=== PATIENT | female | born 1940 | race Caucasian/White ===

== ENCOUNTER 2019-08-09 19:05 | Emergency (ER) | payer MEDICARE, OTHER ==
--- NOTE | 2019-08-09 19:59 | EDM.PDOC ---
ED HPI GENERAL MEDICAL PROBLEM - General Chief Complaint: Chest Pain Stated Complaint: CHEST PAIN VOMITING POST OP Time Seen by Provider: 08/09/19 19:17 Source of Information: Reports: Patient, Family (2 daughters) History Limitations: Reports: Physical Impairment (Hard of hearing - daughters answered most questions) - History of Present Illness INITIAL COMMENTS - FREE TEXT/NARRATIVE: Ms. Sanders is a pleasant 78-year-old woman with a past medical history significant for colon cancer, status post a hemicolectomy with diverting loop colostomy on 06/29/2014, subsequently reversed, and chemotherapy via Port-A-Cath which is also been reversed, and an ascending aortic aneurysm, for which she underwent repair at [facility] on 07/27/2019. Her postoperative course was complicated by paroxysmal atrial fibrillation, currently being treated with amiodarone, and by bleeding ulcers. She required 1 unit PRBC transfusion on 08/03/2019. She was discharged home yesterday, Friday, with a prescription for Hurricane 5/325 that she has been taking 1 tablet every 2-4 hours, as needed for pain. She is not prescribed an antiemetic. The patient is now brought to the ED by 2 of her daughters who tell me that she developed nausea and vomiting yesterday morning, and while she has been experiencing intermittent chest pain and epigastric pain ever since surgery, ER worse since she began vomiting. She also complains of lower back pain, although the daughters tell me that that is chronic. She has been dizzy when upright, for the past day or so. No recent fever or chills, cough, dyspnea, or constipation. She has chronically loose stools following her hemicolectomy. No urinary symptoms. Here in the ED, the patient's BP is found to be mildly elevated, but she is otherwise hemodynamically stable, afebrile, saturating 92% on room air. The patient's PCP is Krystyna Doshi NP. Her Thoracic Surgeon is Dr. Mauricio Cunha. They do not recall the name of her [employer]. Her Oncologist is Dr. Torsten Pierson. She received an influenza vaccine this season. Upper Abdomen Pain Score (Numeric/FACES): 8 - Related Data Allergies Allergy/AdvReac Type Severity Reaction Status Date / Time No Known Allergies Allergy Verified 08/09/19 19:17 Home Meds: Home Meds Acetaminophen 500 mg PO Q4H PRN 08/09/19 [History] Amiodarone HCl 400 mg PO BID 08/09/19 [History] Aspirin 325 mg PO DAILY 08/09/19 [History] Calcium Carbonate/Vitamin D3 [Calcium 500-Vit D3 200 Caplet] 1 tab PO DAILY 07/29 [History] Denosumab [Prolia] 1 injection SUBCUT ASDIRECTED 08/09/19 [History] Ferrous Sulfate 325 mg PO DAILY 08/09/19 [History] Hydrocodone/Acetaminophen [Hydrocodon-Acetaminophen 5-325] 1 tab PO Q4H PRN 07/29 [History] Metoprolol Tartrate 25 mg PO BID 08/09/19 [History] Multivitamin with Minerals [Multiple Vitamin] 1 tab PO DAILY 08/09/19 [History] Ondansetron [Zofran ODT] 1 tab PO Q8H PRN #10 tab.dis 08/09/19 [Rx] Pantoprazole [ProTONIX] 40 mg PO DAILY 08/09/19 [History] Sennosides/Docusate Sodium [Senna-Docusate Sodium Tablet] 1 tab PO DAILY [History] Sucralfate 1 gm PO QID 08/09/19 [History] atorvaSTATin [Lipitor] 20 mg PO BEDTIME 08/09/19 [History] Past Medical History Cardiovascular History: Reports: Afib (paroxysmal, postoperative), Aneurysm ( ascending aortic, s/p repair), Blood Clots/VTE/DVT (no PE), High Cholesterol Gastrointestinal History: Reports: GERD, PUD (postoperative) Musculoskeletal History: Reports: Arthritis, Osteoporosis Neurological History: Reports: Neuropathy, Peripheral (2ndary to CTx) Oncologic (Cancer) History: Reports: Colon (s/p hemicolectomy, CTx) - Past Surgical History Cardiovascular Surgical History: Reports: Aneurysm (ascending aortic, 07/27/2019) , Other (See Below) (Port-A-Cath, subsequently reversed) GI Surgical History: Reports: Colon (hemicolectomy with diverting loop colostomy 06/29/2014, subsequently reversed) Female Surgical History: Reports: Tubal Ligation Social & Family History - Tobacco Use Smoking Status *Q: Former Smoker Years of Tobacco use: 61 Packs/Tins Daily: 1 Month/Year Tobacco Last Used: Quit Jul 2019 - Caffeine Use Caffeine Use: Reports: None - Alcohol Use Alcohol Use History: Yes Alcohol Use Frequency: Socially - Recreational Drug Use Recreational Drug Use: No - Living Situation & Occupation Living situation: Reports: , Alone (currently staying with a daughter) Occupation: Retired ED ROS GENERAL - Review of Systems Review Of Systems: Comprehensive ROS is negative, except as noted in HPI. ED EXAM, GENERAL - Physical Exam Exam: See Below Exam Limited By: No Limitations General Appearance: Alert, WD/WN, No Apparent Distress Eye Exam: Bilateral Eye: EOMI, Normal Inspection Ears: Normal External Exam, Hearing Loss Nose: Normal Inspection Throat/Mouth: Normal Inspection, Normal Lips, Normal Voice, No Airway Compromise Head: Atraumatic, Normocephalic Neck: Normal Inspection, Full Range of Motion Respiratory/Chest: No Respiratory Distress, Lungs Clear, Normal Breath Sounds, No Accessory Muscle Use, Decreased Breath Sounds (throughout), Crackles ( bibasilar), Other (Well-healing midline sternotomy wound with minimal associated ecchymoses). No: Rhonchi, Wheezing, Stridor, Prolonged Expiration Cardiovascular: Normal Peripheral Pulses, Regular Rate, Rhythm, No Edema, No Gallop, No JVD, No Murmur, No Rub Peripheral Pulses: 4+: Radial (L), Radial (R) GI/Abdominal: Normal Bowel Sounds, Soft, No Organomegaly, No Distention, No Abnormal Bruit, No Mass, Tender (appropriate ines-incisional epigastric, otherwise nontender), Other (2 healing surgical wounds in epigastrium with associated ecchymosis) (Female) Exam: Deferred Rectal (Female) Exam: Deferred Back Exam: Normal Inspection, Full Range of Motion. No: CVA Tenderness (L), CVA Tenderness (R) Extremities: Normal Inspection, Normal Range of Motion, No Pedal Edema, Normal Capillary Refill Neurological: Alert, Oriented, Normal Cognition, No Motor/Sensory Deficits Psychiatric: Flat Affect Skin Exam: Warm, Dry, Intact, Normal Color, No Rash EKG INTERPRETATION EKG Date: 08/09/19 Time: 19:15 Rhythm: NSR Rate (Beats/Min): 68 Varney: Normal P-Wave: Present (1st degree AVB) QRS: Normal ST-T: Normal QT: Normal Comparison: No Change (04/11/2015) Course - Vital Signs Last Recorded V/S: Last Vital Signs Temp 36.4 C 08/09/19 19:12 Pulse 81 08/09/19 19:12 Resp 18 08/09/19 19:12 BP 150/71 H 08/09/19 19:12 Pulse Ox 92 L 08/09/19 19:12 Orthostatic Blood Pressure [ 117/62 Standing] Orthostatic Blood Pressure [ 121/68 Supine] - Orders/Labs/Meds Orders: Active Orders 24 hr Category Date Time Status EKG Documentation Completion [RC] STAT Care 08/09/19 19:51 Active Orthostatic Vital Signs [RC] STAT Care 08/09/19 19:50 Active Labs: Laboratory Tests 08/09/19 08/09/19 Range/Units 20:02 20:02 WBC 10.90 H (3.98-10.04) K/mm3 RBC 2.82 L (3.98-5.22) M/mm3 Hgb 8.8 L D (11.2-15.7) gm/dl Hct 29.1 L (34.1-44.9) % MCV 103.2 H D (79.4-94.8) fl MCH 31.2 (25.6-32.2) pg MCHC 30.2 L (32.2-35.5) g/dl RDW Std Deviation 61.5 H (36.4-46.3) fL Plt Count 467 H D (182-369) K/mm3 MPV 10.0 (9.4-12.3) fl Neutrophils % (Manual) 88 H (40-60) % Band Neutrophils % 1 (0-10) % Lymphocytes % (Manual) 5 L (20-40) % Atypical Lymphs % 0 % Monocytes % (Manual) 6 (2-10) % Eosinophils % (Manual) 0 L (0.7-5.8) % Basophils % (Manual) 0 L (0.1-1.2) Platelet Estimate Increased Plt Morphology Comment See note Polychromasia 1+ slight Hypochromasia 1+ slight Anisocytosis 1+ slight Macrocytosis 1+ slight Tear Drop Cells Few Ovalocytes 1+ slight Sodium 144 (136-145) mEq/L Potassium 3.8 (3.5-5.1) mEq/L Chloride 108 H (98-107) mEq/L Carbon Dioxide 28 (21-32) mEq/L Anion Gap 11.8 (5-15) BUN 17 (7-18) mg/dL Creatinine 0.8 (0.55-1.02) mg/dL Est Cr Clr Drug Dosing 42.97 mL/min Estimated GFR (MDRD) > 60 (>60) mL/min BUN/Creatinine Ratio 21.3 H (14-18) Glucose 154 H (83-115) mg/dL Calcium 8.6 (8.5-10.1) mg/dL Magnesium 1.8 (1.8-2.4) mg/dl Total Bilirubin 0.4 (0.2-1.0) mg/dL AST 12 L (15-37) U/L ALT 20 (14-59) U/L Alkaline Phosphatase 64 (46-116) U/L Total Protein 6.1 L (6.4-8.2) g/dl Albumin 2.8 L (3.4-5.0) g/dl Globulin 3.3 gm/dL Albumin/Globulin Ratio 0.9 L (1-2) - Re-Assessments/Exams Free Text/Narrative Re-Assessment/Exam: 08/09/19 19:52 Patient's sternal and epigastric pain is most likely related to her recent thoracic surgery, made worse by recent vomiting. I suspect that the patient received IV analgesics while in the hospital, and has now been switched to oral Hurricane, with a high propensity for nausea and vomiting. She has not prescribed an antiemetic, most likely because of concerns of QT prolongation, although here in the ED, her triage ECG shows a QTc of only 423 ms, so I believe there is some room to treat. On physical examination, the patient does have bibasilar crackles, and I would expect that she would have at least small pleural effusions following this surgery. I have ordered a chest x-ray to evaluate. For today's purposes, I have ordered some blood work, primarily to make sure that she is not so anemic that she requires a transfusion, as well as to track electrolytes and renal function, to make sure no replacements are necessary. I have also ordered orthostatics, given her report of lightheadedness when upright. 08/09/19 19:54 The patient is not orthostatic. 08/09/19 20:29 Two-view chest radiograph reviewed. The cardiac silhouette appears to be within normal limits, however, there is a moderate-sized left-sided pleural effusion which obscures the left cardiac border. Fluid is seen within the left oblique fissure. There is likely a small right-sided pleural effusion, as well. The aortic arch is dilated, and the trachea is deviated to the right. Mild pulmonary vascular congestion. No focal infiltrate seen, but the lower left lung field is obscured by the pleural effusion. No pneumothorax. Sternotomy wires noted. Formal read per the Radiologist pending. 08/09/19 20:46 2-view chest radiograph is read by Dr. Llamas as: Small right-sided pleural effusion with slightly larger left-sided pleural effusion. Some of the left-sided pleural effusion may be loculated. Heart is enlarged which is more prominent than seen on prior exam. Pulmonary vessels are slightly congested. Previous sternotomy is noted. Bony structures shows slight degenerative change within the spine. Previous sternotomy is noted. Impression: 1. Small pleural effusions as noted above. 2. Cardiomegaly and mild pulmonary vascular congestion. Findings are suspicious for mild CHF. 08/09/19 21:04 The patient's CBC is remarkable for a WBC count elevated at 10.90, but with only 1% bandemia. Her H/H is depressed at 8.8/29.1. Her platelets are elevated at 467,000. Her CMP is remarkable for a chloride slightly elevated at 108, and a blood glucose elevated 154, with the remainder of her CMP being unremarkable. Her magnesium level is within normal limits at 1.8. I pushed the chest x-ray images to [facility] at 21:03. 08/09/19 21:14 Case discussed with Eduardo at [facility] at 21:06. Case then discussed with Dr. Reid, Thoracic Surgeon on-call, at 21:11. He felt that the patient symptoms were in line with what would be expected following this surgery. The pleural effusion can be tapped as an outpatient when needed. He is okay with my prescribing Zofran. I will discharge the patient home. 08/09/19 21:33 Test results discussed with the patient and HER-2 daughters. The patient will be given a single dose of oral Zofran here, then be discharged home. I will submit a prescription for Zofran. The patient will follow up with Dr. Cunha this coming 08/13/2019. Departure - Departure Time of Disposition: 21:34 Disposition: Home, Self-Care 01 Condition: Good Clinical Impression: Pleural effusion on left - Discharge Information *PRESCRIPTION DRUG MONITORING PROGRAM REVIEWED*: Not Applicable *COPY OF PRESCRIPTION DRUG MONITORING REPORT IN PATIENT SCOTTY: Not Applicable Referrals: Estella Doshi NP [Primary Care Provider] - Mauricio Cunha MD [Ordering Only Provider] - Torsten Pierson MD [Ordering Only Provider] - Forms: ED Department Discharge Additional Instructions: You were seen in the emergency room for intermittent chest pain and upper abdominal pain, along with nausea and vomiting, following sending aortic aneurysm repair on 07/27/2019. Work-up in the ER included blood work, positional blood pressure checks, a chest x-ray, and an ECG. Your work-up found that you have a moderate sized left pleural effusion. Your blood work showed your hemoglobin to be 8.8. The remainder of your work-up was unremarkable. Your case was discussed with the Thoracic Surgeon Dr. Reid, who explained that the symptoms that you have been experiencing are to be expected following your type of surgery. You have been started on the anti-nausea medicine Zofran, and a prescription for Zofran has been sent to the [facility], located at [address] [place] [address]. You may dissolve 1 tablet of Zofran on your tongue up to every 8 hours, as needed for nausea/vomiting. Continue the rest of your prescriptions as prescribed. Follow-up with Dr. Cunha at your previously scheduled appointment this coming 08/13/2019. If any other problems, please do not hesitate to return to the ER. Sepsis Event Note - Evaluation Sepsis Screening Result: No Definite Risk - Focused Exam Vital Signs: Vital Signs Temp Pulse Resp BP Pulse Ox 08/09/19 19:12 36.4 C 81 18 150/71 H 92 L Date Exam was Performed: 08/09/19 Time Exam was Performed: 21:04 - My Orders Last 24 Hours: My Active Orders 08/09/19 19:50 Orthostatic Vital Signs [RC] STAT 08/09/19 19:51 EKG Documentation Completion [RC] STAT - Assessment/Plan Last 24 Hours: My Active Orders 08/09/19 19:50 Orthostatic Vital Signs [RC] STAT 08/09/19 19:51 EKG Documentation Completion [RC] STAT
--- NOTE | 2019-08-09 20:45 | CR ---
Chest: 2 views of the chest were obtained. Comparison: Prior chest x-ray of 12/30/14. Small right sided pleural effusion with slightly larger left-sided pleural effusion. Some of the left-sided pleural effusion may be loculated. Heart is enlarged which is more prominent than seen on prior exam. Pulmonary vessels are slightly congested. Previous sternotomy is noted. Bony structures shows slight degenerative change within the spine. Previous sternotomy is noted. Impression: 1. Small pleural effusions as noted above. 2. Cardiomegaly and mild pulmonary vascular congestion. Findings are suspicious for mild CHF. Diagnostic code #3 Study was dictated in [place] Standard Time
[2019-08-09 21:18] VITALS: BP 121/55; PULSE 66
[2019-08-09] MEDS ORDERED: Ondansetron 4 MG Tab.DIS PO ONE (21:32)
== END 2019-08-09 21:50 | disposition home or self-care (01) ==
LOC: JD.ED 19:05
DX: J90 Pleural effusion, not elsewhere classified (principal); I48.0 Paroxysmal atrial fibrillation; Z86.718 Personal history of other venous thrombosis and embolism; E78.00 Pure hypercholesterolemia, unspecified; M19.90 Unspecified osteoarthritis, unspecified site; Z87.891 Personal history of nicotine dependence; Z79.82 Long term (current) use of aspirin; Z79.899 Other long term (current) drug therapy
CPT/HCPCS: 36415; 71046; 80053; 83735; 85007; 85027; 93005; 99285; A9270; 93010; 99283

== ENCOUNTER 2019-10-08 10:22 | Emergency (ER) | payer MEDICARE, OTHER ==
[2019-10-08] MEDS ORDERED: Sodium Chloride 0.9% 10 ML Syringe FLUSH PRN (10:38)
[2019-10-08] MEDS ORDERED: Sodium Chloride 0.9% 10 ML Syringe FLUSH ONE (11:39)
[2019-10-08] MEDS ORDERED: Iopamidol 755 Mg/ML 100 ML Bottle IVPUSH ONE (11:39)
[2019-10-08] MEDS ORDERED: Sodium Chloride 0.9% 100 ML IV SCH (11:45)
--- NOTE | 2019-10-08 12:01 | CR ---
Chest: Portable view of the chest was obtained. Comparison: Previous chest x-ray of 12/30/14. Heart is enlarged. Parenchymal density is noted within the right upper chest. Lungs otherwise are clear. Pulmonary vessels are minimally congested. Possible small right-sided pleural effusion is present. Impression: 1. Cardiomegaly with mild pulmonary vascular congestion and probable small right-sided pleural effusion. Findings suggest mild CHF. 2. Slight parenchymal density within the right upper chest. Findings could represent minimal area of pneumonia patient has infectious symptoms. Findings otherwise are due to atelectasis. Diagnostic code #3 This report was dictated in MDT
--- NOTE | 2019-10-08 12:05 | EDM.PDOC ---
ED HPI GENERAL MEDICAL PROBLEM - General Chief Complaint: Cardiovascular Problem Stated Complaint: RAPID HEART RATE Time Seen by Provider: 10/08/19 10:34 Source of Information: Reports: Patient History Limitations: Reports: No Limitations - History of Present Illness INITIAL COMMENTS - FREE TEXT/NARRATIVE: The patient presents with palpitations. She had aortic surgery in July and she had her chest cracked. She says this has been going on since she had the surgery but it is worse lately. She will get some chest pain and shortness of breath with it. She did get some night sweats the past few nights. She has no fever, chills, cough, congestion, or runny nose. She has no abdominal pain, nausea or vomiting. Onset: Gradual Duration: Week(s): Location: Reports: Chest Quality: Reports: Pressure Severity: Moderate Improves with: Reports: None Worsens with: Reports: None Associated Symptoms: Reports: Chest Pain, Shortness of Breath. Denies: Cough, Fever/Chills, Headaches, Nausea/Vomiting - Related Data Allergies Allergy/AdvReac Type Severity Reaction Status Date / Time No Known Allergies Allergy Verified 10/08/19 10:35 Home Meds: Home Meds Acetaminophen 500 mg PO Q4H PRN 08/09/19 [History] Amiodarone HCl 400 mg PO BID 08/09/19 [History] Aspirin 325 mg PO DAILY 08/09/19 [History] Calcium Carbonate/Vitamin D3 [Calcium 500-Vit D3 200 [place]] 1 tab PO DAILY 07/29 [History] Denosumab [Prolia] 1 injection SUBCUT ASDIRECTED 08/09/19 [History] Ferrous Sulfate 325 mg PO DAILY 08/09/19 [History] Hydrocodone/Acetaminophen [Hydrocodon-Acetaminophen 5-325] 1 tab PO Q4H PRN 07/29 [History] Metoprolol Tartrate 25 mg PO BID 08/09/19 [History] Multivitamin with Minerals [Multiple Vitamin] 1 tab PO DAILY 08/09/19 [History] Ondansetron [Zofran ODT] 1 tab PO Q8H PRN #10 tab.dis 08/09/19 [Rx] Pantoprazole [ProTONIX] 40 mg PO DAILY 08/09/19 [History] Sennosides/Docusate Sodium [Senna-Docusate Sodium Tablet] 1 tab PO DAILY [History] Sucralfate 1 gm PO QID 08/09/19 [History] atorvaSTATin [Lipitor] 20 mg PO BEDTIME 08/09/19 [History] Past Medical History - Past Health History Medical/Surgical History: Denies Medical/Surgical History Cardiovascular History: Reports: Afib, Aneurysm, Blood Clots/VTE/DVT, High Cholesterol Other Cardiovascular History: 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 regurg. 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 - Past Surgical History Cardiovascular Surgical History: Reports: Aneurysm, Other (See Below) Other Respiratory Surgeries/Procedures: Port-A-Cath placement GI Surgical History: Reports: Colon Female Surgical History: Reports: Tubal Ligation Social & Family History - Tobacco Use Smoking Status *Q: Never Smoker - Caffeine Use Caffeine Use: Reports: None - Recreational Drug Use Recreational Drug Use: No - Living Situation & Occupation Living situation: Reports: , Alone (currently staying with a daughter) Occupation: Retired ED ROS GENERAL - Review of Systems Review Of Systems: See Below Constitutional: Reports: No Symptoms HEENT: Reports: No Symptoms Respiratory: Reports: Shortness of Breath. Denies: Cough Cardiovascular: Reports: Chest Pain, Palpitations Endocrine: Reports: No Symptoms GI/Abdominal: Reports: No Symptoms : Reports: No Symptoms Musculoskeletal: Reports: No Symptoms ED EXAM, GENERAL - Physical Exam Exam: See Below Exam Limited By: No Limitations General Appearance: Alert, No Apparent Distress Ears: Normal External Exam Nose: Normal Inspection Head: Atraumatic, Normocephalic Neck: Normal Inspection Respiratory/Chest: No Respiratory Distress, Lungs Clear, Normal Breath Sounds Cardiovascular: Regular Rate, Rhythm, No Edema, No Murmur GI/Abdominal: Soft, Non-Tender, No Organomegaly, No Mass Back Exam: Normal Inspection Extremities: Normal Inspection EKG INTERPRETATION EKG Date: 10/08/19 Time: 10:31 Rhythm: NSR Rate (Beats/Min): 78 [place]: LAD-Left [place] Deviation P-Wave: Present QRS: Normal ST-T: Normal QT: Normal EKG Interpretation Comments: PACs, Q waves in the anterior and inferior leads Course - Vital Signs Last Recorded V/S: Last Vital Signs Temp 97.2 F 10/08/19 10:33 Pulse 98 10/08/19 10:33 Resp 17 10/08/19 10:33 BP 114/73 10/08/19 10:33 Pulse Ox 96 10/08/19 10:33 - Orders/Labs/Meds Orders: Active Orders 24 hr Category Date Time Status Cardiac Monitoring [RC] . DIRECTED Care 10/08/19 10:38 Active EKG Documentation Completion [RC] STAT Care 10/08/19 10:39 Active Peripheral IV Care [RC] . DIRECTED Care 10/08/19 10:39 Active Heparin Sodium/D5W [Heparin 25,000 Units in D5W 500 ML] Med 10/08/19 13:00 Active 25,000 units in 500 ml IV TITRATE Sodium Chloride 0.9% [Normal Saline] 100 ml Med 10/08/19 11:45 Active IV ASDIRECTED Sodium Chloride 0.9% [Saline Flush] Med 10/08/19 10:38 Active 10 ml FLUSH ASDIRECTED PRN Peripheral IV Insertion Adult [OM.PC] Stat Oth 10/08/19 10:38 Ordered EKG 12 Lead [EK] Stat Ther 10/08/19 10:39 Ordered Medication Orders Sodium Chloride (Normal Saline) 100 mls @ 60 mls/hr IV ASDIRECTED JEY Last Admin: 10/08/19 11:54 Dose: 60 mls/hr Heparin Sodium/Dextrose (Heparin 25,000 Units In D5w 500 Ml) 25,000 units in 500 mls @ 19.731 mls/hr IV TITRATE JEY; Protocol Sodium Chloride (Saline Flush) 10 ml FLUSH ASDIRECTED PRN PRN Reason: Keep Vein Open Last Admin: 10/08/19 10:44 Dose: 10 ml Labs: Laboratory Tests 10/08/19 10/08/19 10/08/19 Range/Units 10:40 10:40 10:40 WBC 12.62 H (3.98-10.04) K/mm3 RBC 4.43 (3.98-5.22) M/mm3 Hgb 12.5 D (11.2-15.7) gm/dl Hct 41.6 (34.1-44.9) % MCV 93.9 D (79.4-94.8) fl MCH 28.2 (25.6-32.2) pg MCHC 30.0 L (32.2-35.5) g/dl RDW Std Deviation 50.2 H (36.4-46.3) fL Plt Count 366 D (182-369) K/mm3 MPV 9.8 (9.4-12.3) fl Neut % (Auto) 83.8 H (34.0-71.1) % Lymph % (Auto) 6.3 L (19.3-51.7) % [place] % (Auto) 9.1 (4.7-12.5) % Eos % (Auto) 0.1 L (0.7-5.8) Baso % (Auto) 0.5 (0.1-1.2) % Neut # (Auto) 10.59 H (1.56-6.13) K/mm3 Lymph # (Auto) 0.79 L (1.18-3.74) K/mm3 [place] # (Auto) 1.15 H (0.24-0.36) K/mm3 Eos # (Auto) 0.01 L (0.04-0.36) K/mm3 Baso # (Auto) 0.06 (0.01-0.08) K/mm3 Manual Slide Review Abnormal smear APTT (22-31) SECONDS D-Dimer, Quantitative 1.07 H (0.19-0.50) mg/L Sodium 144 (136-145) mEq/L Potassium 4.6 (3.5-5.1) mEq/L Chloride 105 (98-107) mEq/L Carbon Dioxide 27 (21-32) mEq/L Anion Gap 16.6 H (5-15) BUN 12 (7-18) mg/dL Creatinine 1.0 (0.55-1.02) mg/dL Est Cr Clr Drug Dosing 37.26 mL/min Estimated GFR (MDRD) 54 (>60) mL/min BUN/Creatinine Ratio 12.0 L (14-18) Glucose 177 H (83-115) mg/dL Calcium 9.8 (8.5-10.1) mg/dL Total Bilirubin 0.7 (0.2-1.0) mg/dL AST 16 (15-37) U/L ALT 13 L (14-59) U/L Alkaline Phosphatase 66 (46-116) U/L Troponin I 1.019 H* (0.00-0.056) ng/mL C-Reactive Protein (<1.0) mg/dL NT-Pro-B Natriuret Pep (0-450) pg/mL Total Protein 7.9 (6.4-8.2) g/dl Albumin 3.6 (3.4-5.0) g/dl Globulin 4.3 gm/dL Albumin/Globulin Ratio 0.8 L (1-2) TSH 3rd Generation 3.828 H (0.358-3.74) uIU/mL 10/08/19 10/08/19 10/08/19 Range/Units 10:40 10:40 10:40 WBC (3.98-10.04) K/mm3 RBC (3.98-5.22) M/mm3 Hgb (11.2-15.7) gm/dl Hct (34.1-44.9) % MCV (79.4-94.8) fl MCH (25.6-32.2) pg MCHC (32.2-35.5) g/dl RDW Std Deviation (36.4-46.3) fL Plt Count (182-369) K/mm3 MPV (9.4-12.3) fl Neut % (Auto) (34.0-71.1) % Lymph % (Auto) (19.3-51.7) % [place] % (Auto) (4.7-12.5) % Eos % (Auto) (0.7-5.8) Baso % (Auto) (0.1-1.2) % Neut # (Auto) (1.56-6.13) K/mm3 Lymph # (Auto) (1.18-3.74) K/mm3 [place] # (Auto) (0.24-0.36) K/mm3 Eos # (Auto) (0.04-0.36) K/mm3 Baso # (Auto) (0.01-0.08) K/mm3 Manual Slide Review APTT 25 (22-31) SECONDS D-Dimer, Quantitative (0.19-0.50) mg/L Sodium (136-145) mEq/L Potassium (3.5-5.1) mEq/L Chloride (98-107) mEq/L Carbon Dioxide (21-32) mEq/L Anion Gap (5-15) BUN (7-18) mg/dL Creatinine (0.55-1.02) mg/dL Est Cr Clr Drug Dosing mL/min Estimated GFR (MDRD) (>60) mL/min BUN/Creatinine Ratio (14-18) Glucose (83-115) mg/dL Calcium (8.5-10.1) mg/dL Total Bilirubin (0.2-1.0) mg/dL AST (15-37) U/L ALT (14-59) U/L Alkaline Phosphatase (46-116) U/L Troponin I (0.00-0.056) ng/mL C-Reactive Protein 2.0 H* (<1.0) mg/dL NT-Pro-B Natriuret Pep 40320 H (0-450) pg/mL Total Protein (6.4-8.2) g/dl Albumin (3.4-5.0) g/dl Globulin gm/dL Albumin/Globulin Ratio (1-2) TSH 3rd Generation (0.358-3.74) uIU/mL Meds: Medications Generic Name Dose Route Start Last Admin Trade Name Freq PRN Reason Stop Dose Admin Sodium Chloride 100 mls @ 60 mls/hr 10/08/19 11:45 10/08/19 11:54 Normal Saline IV 60 mls/hr ASDIRECTED JEY Administration Heparin Sodium/Dextrose 25,000 units in 500 mls @ 19.731 mls/hr 10/08/19 13: 00 Heparin 25,000 Units In D5w 500 Ml IV TITRATE JEY Protocol 15 UNITS/KG/HR Sodium Chloride 10 ml 10/08/19 10:38 10/08/19 10:44 Saline Flush FLUSH 10 ml ASDIRECTED PRN Administration Keep Vein Open Discontinued Medications Generic Name Dose Route Start Last Admin Trade Name Freq PRN Reason Stop Dose Admin Iopamidol 100 ml 10/08/19 11:39 10/08/19 11:54 Isovue-370 (76%) IVPUSH 05/01/20 11:40 100 ml ONETIME ONE Administration Sodium Chloride 10 ml 10/08/19 11:39 10/08/19 11:54 Saline Flush FLUSH 10/08/19 11:40 10 ml ONETIME ONE Administration - Re-Assessments/Exams Free Text/Narrative Re-Assessment/Exam: 10/08/19 12:06 I ordered an IV saline lock, EKG, CXR, and labs. Her EKG shows a NSR at 78 with with PACs and Q waves in the inferior leads and anterior leads. Her CXR shows cardiomegaly with mild pulmonary vascular congestion and probable small right- sided pleural effusion. Findings suggest mild CHF. Slight parenchymal density within the right upper chest. Findings could represent minimal area of pneumonia patient has infectious symptoms. Findings otherwise are due to atelectasis. Her WBC is elevated at 12.62. Her D-dimer is elevated at 1.07. I ordered a CT angio of her chest. Her anion gap is elevated at 16.6. Her glucose is elevated at 177. Her troponin is elevated at 1.019. Her BNP is elevated at 15.245. Her TSH is slightly elevated at 3.828. 10/08/19 12:[address] shows small right-sided pleural effusion with trace left-sided pleural effusion. Aorta shows mild diffuse aneurysm. Previous sternotomy noted. Very minimal filling defect within a segmental branch within the right lower pulmonary artery. Difficult to exclude minimal pulmonary embolism although this is most likely not clinically significant if no findings of venous thrombosis are seen within either leg. Consider bilateral lower extremity venous US to further evaluate. Coronary artery calcification. I called [facility] in [place] and talked with Dr Tate the general farm hand and Dr Choudhury the hospitalist. They accepted the patient and they wanted a heparin drip. 10/08/19 13:33 Departure - Departure Time of Disposition: 13:40 Disposition: DC/Tfer to Acute Hospital 02 Reason for Transfer *Q: Other Condition: Serious Clinical Impression: Non-STEMI (non-ST elevated myocardial infarction) Pulmonary embolism Qualifiers: Pulmonary embolism type: unspecified Chronicity: acute Acute cor pulmonale presence: unspecified Qualified Code(s): I26.99 - Other pulmonary embolism without acute cor pulmonale Referrals: Estella Doshi NP [Primary Care Provider] - Forms: ED Department Discharge Sepsis Event Note - Evaluation Sepsis Screening Result: No Definite Risk - Focused Exam Vital Signs: Vital Signs Temp Pulse Resp BP Pulse Ox 10/08/19 10:33 97.2 F 98 17 114/73 96 Date Exam was Performed: 10/08/19 Time Exam was Performed: 13:33 - My Orders Last 24 Hours: My Active Orders 10/08/19 10:38 Cardiac Monitoring [RC] . DIRECTED Sodium Chloride 0.9% [Saline Flush] 10 ml FLUSH ASDIRECTED PRN Peripheral IV Insertion Adult [OM.PC] Stat 10/08/19 10:39 EKG Documentation Completion [RC] STAT Peripheral IV Care [RC] . DIRECTED EKG 12 Lead [EK] Stat 10/08/19 11:45 Sodium Chloride 0.9% [Normal Saline] 100 ml IV ASDIRECTED 10/08/19 13:00 Heparin Sodium/D5W [Heparin 25,000 Units in D5W 500 ML] 25,000 units in 500 ml IV TITRATE - Assessment/Plan Last 24 Hours: My Active Orders 10/08/19 10:38 Cardiac Monitoring [RC] . DIRECTED Sodium Chloride 0.9% [Saline Flush] 10 ml FLUSH ASDIRECTED PRN Peripheral IV Insertion Adult [OM.PC] Stat 10/08/19 10:39 EKG Documentation Completion [RC] STAT Peripheral IV Care [RC] . DIRECTED EKG 12 Lead [EK] Stat 10/08/19 11:45 Sodium Chloride 0.9% [Normal Saline] 100 ml IV ASDIRECTED 10/08/19 13:00 Heparin Sodium/D5W [Heparin 25,000 Units in D5W 500 ML] 25,000 units in 500 ml IV TITRATE
--- NOTE | 2019-10-08 12:35 | CT ---
CT chest Technique: Multiple axial sections through the chest were obtained. Intravenous contrast was utilized. Study performed as pulmonary angiogram protocol. Findings: Pulmonary arteries are well opacified. Very minimal filling defect is seen within a segmental branch within the right lower lobe pulmonary artery. Very minimal amount of thrombus is possible. No other findings of pulmonary embolism is seen. Aorta shows diffuse aneurysmal dilatation. Ascending aorta measures 4.5 cm and descending aorta measures about 3.3 cm. Coronary artery calcification is noted. Previous sternotomy is noted. Heart is mildly enlarged. Small right-sided pleural effusion with trace left-sided pleural effusion being seen. Fluid is seen within the minor fissure causing the parenchymal density on chest x-ray within the right midlung. Fluid is seen within the major fissure on the right side. No acute parenchymal process is appreciated. Impression: 1. Small right-sided pleural effusion with trace left-sided pleural effusion. 2. Aorta shows mild diffuse aneurysm. Previous sternotomy noted. 3. Very minimal filling defect within a segmental branch within the right lower pulmonary artery. Difficult to exclude minimal pulmonary embolism although this is most likely not clinically significant if no findings of venous thrombosis are seen within either leg. Consider bilateral lower extremity venous ultrasound to further evaluate. 4. Coronary artery calcification. 5. Other findings believed to be incidental as noted above. Diagnostic code #3 This report was dictated in MDT
[2019-10-08] MEDS ORDERED: Heparin Sodium/D5W 25,000 UNITS/500 ML BAG IV SCH (13:00)
[2019-10-08 14:13] VITALS: BP 99/74; PULSE 90
== END 2019-10-08 14:00 ==
LOC: JD.ED 10:22
DX: I21.4 Non-ST elevation (NSTEMI) myocardial infarction (principal); I26.99 Other pulmonary embolism without acute cor pulmonale; I48.91 Unspecified atrial fibrillation; E78.00 Pure hypercholesterolemia, unspecified; K21.9 Gastro-esophageal reflux disease without esophagitis; M19.90 Unspecified osteoarthritis, unspecified site; Z86.718 Personal history of other venous thrombosis and embolism; Z87.11 Personal history of peptic ulcer disease; Z79.899 Other long term (current) drug therapy; Z79.82 Long term (current) use of aspirin
CPT/HCPCS: 36415; 71045; 71275; 80053; 83880; 84443; 84484; 85025; 85379; 85730; 86140; 93005; 96361; 96374; 99285; J1644; J7050; Q9967; 93010

== ENCOUNTER 2019-11-20 12:19 | Emergency (ER) | payer MEDICARE, OTHER ==
--- NOTE | 2019-11-20 13:14 | EDM.PDOC ---
ED HPI GENERAL MEDICAL PROBLEM - General Chief Complaint: Neurological Problem Stated Complaint: BODY IS SHAKEING Time Seen by Provider: 11/20/19 13:11 - History of Present Illness INITIAL COMMENTS - FREE TEXT/NARRATIVE: 79-year-old female presents the emergency room with shakiness. Patient awoke around 6 AM this morning and noticed that she was shaking more than normal. She normally has a mild tremor but this was more obvious and seemed to involve her upper and lower extremities. This was not associated with any dizziness shortness of breath chest pain or breathing difficulties. She was not having any palpitations and her heart. Patient has had a significant recent past medical history she had a NSTEMI the 07 of October of this year and in July she had a open aortic repair done. The patient has not had any fevers or chills has not had a cough or any other symptoms to suggest an infection elsewhere. - Related Data Allergies Allergy/AdvReac Type Severity Reaction Status Date / Time No Known Allergies Allergy Verified 11/20/19 12:49 Home Meds: Home Meds Acetaminophen 500 mg PO Q4H PRN 08/09/19 [History] Calcium Carbonate/Vitamin D3 [Calcium 500-Vit D3 200 [place]] 1 tab PO DAILY 07/29 [History] Denosumab [Prolia] 1 injection SUBCUT ASDIRECTED 08/09/19 [History] Multivitamin with Minerals [Multiple Vitamin] 1 tab PO DAILY 08/09/19 [History] Sucralfate 1 gm PO QID 08/09/19 [History] atorvaSTATin [Lipitor] 20 mg PO BEDTIME 08/09/19 [History] Apixaban [Eliquis] 5 mg PO BID 11/20/19 [History] Furosemide [Lasix] 20 mg PO DAILY 11/20/19 [History] Metoprolol Succinate [Toprol XL 50mg] 50 mg PO DAILY 11/20/19 [History] Spironolactone 25 mg PO DAILY 11/20/19 [History] lisinopriL [Lisinopril] 5 mg PO DAILY 11/20/19 [History] Past Medical History - Past Health History Medical/Surgical History: Denies Medical/Surgical History HEENT History: Reports: Other (See Below) Other HEENT History: wears glasses, hearing aids, and top and bottom dentures Cardiovascular History: Reports: Afib, Aneurysm, Blood Clots/VTE/DVT, High Cholesterol, [place] Other Cardiovascular History: 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 regurg. 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 - Infectious Disease History Infectious Disease History: Reports: Chicken Pox, Measles, Mumps - Past Surgical History Cardiovascular Surgical History: Reports: Aneurysm, Other (See Below) GI Surgical History: Reports: Colon Female Surgical History: Reports: Tubal Ligation Social & Family History - Family History Family Medical History: Noncontributory - Tobacco Use Smoking Status *Q: Current Every Day Smoker Years of Tobacco use: 60 Packs/Tins Daily: 0.5 - Caffeine Use Caffeine Use: Reports: Coffee - Recreational Drug Use Recreational Drug Use: No - Living Situation & Occupation Living situation: Reports: , Alone (currently staying with a daughter) Occupation: Retired ED ROS GENERAL - Review of Systems Review Of Systems: See Below Constitutional: Reports: No Symptoms HEENT: Reports: No Symptoms Respiratory: Reports: No Symptoms Cardiovascular: Reports: No Symptoms Endocrine: Reports: No Symptoms GI/Abdominal: Reports: No Symptoms : Reports: No Symptoms Musculoskeletal: Reports: No Symptoms Skin: Reports: No Symptoms Neurological: Reports: No Symptoms. Denies: Seizure, Syncope, Tingling Psychiatric: Reports: No Symptoms Hematologic/Lymphatic: Reports: No Symptoms ED EXAM, GENERAL - Physical Exam Exam: See Below Exam Limited By: No Limitations General Appearance: Alert, No Apparent Distress, Other (She says the shakiness is much better at this time she does have a mild tremor noticed in her upper extremities but that is about it) Ears: Normal External Exam, Normal Canal, Hearing Grossly Normal, Normal TMs, Other (Hearing aids had to be removed for an exam) Nose: Normal Inspection, Normal Mucosa, No Blood Throat/Mouth: Normal Inspection, Normal Lips, Normal Gums, Normal Oropharynx, Normal Voice, No Airway Compromise, Other (She has dentures noted in the upper and lower positions). No: Normal Teeth Head: Atraumatic, Normocephalic Neck: Normal Inspection, Supple, Non-Tender, Full Range of Motion. No: Lymphadenopathy (L), Lymphadenopathy (R) Respiratory/Chest: No Respiratory Distress, Lungs Clear, Normal Breath Sounds Cardiovascular: Regular Rate, Rhythm, No Edema, No Murmur GI/Abdominal: Normal Bowel Sounds, Soft, Non-Tender Back Exam: Normal Inspection. No: CVA Tenderness (L), CVA Tenderness (R) Extremities: Normal Inspection, No Pedal Edema Neurological: Alert, Oriented, Normal Cognition, Other (Cranial nerves II through XII grossly intact the exception that her hearing is diminished however , her hearing aids are not as good as they used to be. All muscle groups in the upper and lower extremities are equal and appropriate bilaterally deep tendon reflexes at the brachioradialis and patella tendons are normal bilaterally. Cranial nerves II through XII grossly intact) Psychiatric: Normal Affect, Normal Mood Skin Exam: Warm, Dry, Intact Lymphatic: No Adenopathy EKG INTERPRETATION EKG Date: 11/20/19 Rhythm: NSR [place]: LAD-Left [place] Deviation P-Wave: Present QRS: Normal ST-T: Normal QT: Prolonged Comparison: Change From Previous EKG (Her last EKG she had diffuse T wave inversion on October 07 of this year some of this has resolved. She has slightly more QT prolongation) EKG Interpretation Comments: Abnormal EKG Course - Vital Signs Last Recorded V/S: Last Vital Signs Temp 36.9 C 11/20/19 12:44 Pulse 89 11/20/19 12:44 Resp 16 11/20/19 12:44 BP 159/99 H 11/20/19 12:44 Pulse Ox 97 11/20/19 12:44 - Orders/Labs/Meds Orders: Active Orders 24 hr Category Date Time Status EKG Documentation Completion [RC] STAT Care 11/20/19 13:32 Active Labs: Laboratory Tests 11/20/19 11/20/19 11/20/19 Range/Units 13:05 13:05 13:05 WBC 10.85 H (3.98-10.04) K/mm3 RBC 4.48 (3.98-5.22) M/mm3 Hgb 12.6 (11.2-15.7) gm/dl Hct 40.1 (34.1-44.9) % MCV 89.5 D (79.4-94.8) fl MCH 28.1 (25.6-32.2) pg MCHC 31.4 L (32.2-35.5) g/dl RDW Std Deviation 53.1 H (36.4-46.3) fL Plt Count 288 D (182-369) K/mm3 MPV 10.6 (9.4-12.3) fl Neut % (Auto) 78.3 H (34.0-71.1) % Lymph % (Auto) 11.4 L (19.3-51.7) % [place] % (Auto) 9.2 (4.7-12.5) % Eos % (Auto) 0.4 L (0.7-5.8) Baso % (Auto) 0.4 (0.1-1.2) % Neut # (Auto) 8.50 H (1.56-6.13) K/mm3 Lymph # (Auto) 1.24 (1.18-3.74) K/mm3 [place] # (Auto) 1.00 H (0.24-0.36) K/mm3 Eos # (Auto) 0.04 (0.04-0.36) K/mm3 Baso # (Auto) 0.04 (0.01-0.08) K/mm3 Manual Slide Review Normal smear Sodium 142 (136-145) mEq/L Potassium 3.6 (3.5-5.1) mEq/L Chloride 107 (98-107) mEq/L Carbon Dioxide 26 (21-32) mEq/L Anion Gap 12.6 (5-15) BUN 17 (7-18) mg/dL Creatinine 1.2 H (0.55-1.02) mg/dL Est Cr Clr Drug Dosing TNP Estimated GFR (MDRD) 44 (>60) mL/min BUN/Creatinine Ratio 14.2 (14-18) Glucose 176 H (83-115) mg/dL Calcium 9.3 (8.5-10.1) mg/dL Magnesium 1.7 L (1.8-2.4) mg/dl Total Bilirubin 0.5 (0.2-1.0) mg/dL AST 38 H (15-37) U/L ALT 25 (14-59) U/L Alkaline Phosphatase 60 (46-116) U/L Troponin I < 0.017 (0.00-0.056) ng/mL Total Protein 7.7 (6.4-8.2) g/dl Albumin 3.8 (3.4-5.0) g/dl Globulin 3.9 gm/dL Albumin/Globulin Ratio 1.0 (1-2) TSH 3rd Generation 0.998 (0.358-3.74) uIU/mL Meds: Medications Discontinued Medications Generic Name Dose Route Start Last Admin Trade Name Leonard PRN Reason Stop Dose Admin Magnesium Sulfate 2 gm/ Premix 50 mls @ 25 mls/hr 11/20/19 14:40 11/20/19 15: 06 IV 11/20/19 16:39 25 mls/hr ONETIME ONE Administration Potassium Chloride 20 meq 11/20/19 14:41 11/20/19 15:05 Klor-Con M20 PO 11/20/19 14:42 20 meq ONETIME ONE Administration - Re-Assessments/Exams Free Text/Narrative Re-Assessment/Exam: 11/20/19 13:44 Patient has a completely normal neurologic exam except for hearing deficit I am not sure neurologic imaging is can offer any benefit the situation we will check some labs and an EKG on her. Many of her symptoms have resolved which can make this more difficult to identify as well. 11/20/19 14:46 The patient labs show some minimal decrease in her potassium at 3.6. Her magnesium was low at 1.7 we will give her 2 g of IV mag and 20 mEq of oral potassium she is on spironolactone and SHAHEED inhibitor which should help keep her potassium up however she is also on Lasix 20 mg a day that can be driving this on her EKG she is got mildly prolonged QT interval and this could be related to the relative hypo-kalemia and the hypo-magnesium. 11/20/19 16:39 Patient is doing better after receiving magnesium this is almost completely and after it is and we will let her go home and do recommend she start 1 Mag-Ox 400 mg daily Departure - Departure Time of Disposition: 16:43 Disposition: Home, Self-Care 01 Clinical Impression: Occasional tremors, Hypomagnesemia - Discharge Information Referrals: Estella Doshi NP [Primary Care Provider] - Forms: ED Department Discharge Additional Instructions: Return to the emergency room with any questions problems or worsening symptoms. technical support director some [id number] magnesium oxide 400 mg take 1 daily. Follow-up in the clinic in 1 week for recheck. Discuss keeping a close eye on your potassium level and your magnesium. You are a diuretic therapy that can deplete both these levels. Sepsis Event Note (ED) - Evaluation Sepsis Screening Result: No Definite Risk - Focused Exam Vital Signs: Vital Signs Temp Pulse Resp BP Pulse Ox 11/20/19 12:44 36.9 C 89 16 159/99 H 97 - My Orders Last 24 Hours: My Active Orders 11/20/19 13:32 EKG Documentation Completion [RC] STAT - Assessment/Plan Last 24 Hours: My Active Orders 11/20/19 13:32 EKG Documentation Completion [RC] STAT
[2019-11-20] MEDS ORDERED: Magnesium Sulfate/Water 2 GM in Premix Bag 1 BAG IV ONE (14:40)
[2019-11-20] MEDS ORDERED: Potassium Chloride 20 MEQ Tab.ER PO ONE (14:41)
[2019-11-20 17:27] VITALS: BP 100/76; PULSE 77
== END 2019-11-20 17:16 | disposition home or self-care (01) ==
LOC: JD.ED 12:19
DX: E83.42 Hypomagnesemia (principal); I25.2 Old myocardial infarction; G62.9 Polyneuropathy, unspecified; F17.210 Nicotine dependence, cigarettes, uncomplicated; I48.91 Unspecified atrial fibrillation; E78.00 Pure hypercholesterolemia, unspecified; Z79.01 Long term (current) use of anticoagulants; Z79.899 Other long term (current) drug therapy; Z86.718 Personal history of other venous thrombosis and embolism
CPT/HCPCS: 36415; 80053; 83735; 84443; 84484; 85025; 93005; 96365; 96366; 99285; A9270; J3475; 93010; 99283

== ENCOUNTER 2022-09-12 15:03 | Emergency (ER) | payer MEDICARE, OTHER ==
[2022-09-12 15:18] VITALS: PULSE 88
[2022-09-12] MEDS ORDERED: Sodium Chloride 0.9% 10 ML Syringe FLUSH PRN (15:24)
[2022-09-12] MEDS ORDERED: Sodium Chloride 0.9% 1,000 ML IV STA (17:04)
[2022-09-12] MEDS ORDERED: Nitroglycerin 0.4 MG Tab.SL SL ONE (17:19)
[2022-09-12 17:44] VITALS: BP 126/72
[2022-09-12] MEDS ORDERED: Nitroglycerin/D5W 25 MG/250 ML BOTTLE IV SCH (18:00)
[2022-09-12] MEDS ORDERED: Heparin Sodium 5,000 Units/ML Vial IVPUSH ONE (18:30)
[2022-09-12] MEDS ORDERED: Heparin Sodium/D5W 25,000 UNITS/500 ML BAG IV SCH (18:30)
== END 2022-09-12 18:44 ==
LOC: JD.ED 15:03
DX: I21.4 Non-ST elevation (NSTEMI) myocardial infarction (principal); I48.91 Unspecified atrial fibrillation; E78.00 Pure hypercholesterolemia, unspecified; F17.210 Nicotine dependence, cigarettes, uncomplicated; Z20.822 Contact with and (suspected) exposure to COVID-19; Z86.718 Personal history of other venous thrombosis and embolism; Z79.899 Other long term (current) drug therapy; Z79.01 Long term (current) use of anticoagulants
CPT/HCPCS: 36415; 71045; 80053; 81001; 83880; 84484; 85025; 85379; 85730; 86140; 93005; 96361; 96365; 96368; 96375; 99285; A9270; J1644; J3490; J7030; U0002; 93010

== ENCOUNTER 2023-04-30 18:43 | Emergency (ER) | payer MEDICARE, OTHER ==
[2023-04-30 19:27] LABS: BASOPHILS ABSOLUTE AUTO 0.1 K/mm3 (0.0-0.2); BASOPHILS PERCENT AUTO 0.5 % (0.0-1.0); EOSINOPHILS ABSOLUTE AUTO 0.1 K/mm3 (0.0-0.4); EOSINOPHILS PERCENT AUTO 0.5 % (0.0-6.0); HEMATOCRIT 40.8 % (37.0-47.0); HEMOGLOBIN 13.5 gm/dl (12.0-16.0); IMMATURE GRAN ABSOLUTE AUTO 0.19 K/mm3 (0.00-0.05); IMMATURE GRAN PERCENT AUTO 1.2 % (0.0-0.4); LYMPHOCYTES ABSOLUTE AUTO 1.7 K/mm3 (1.0-4.8); LYMPHOCYTES PERCENT AUTO 10.6 % (24.0-44.0); MEAN CORPUSCULAR HEMOGLOBIN 33.6 pg (28.0-32.0); MEAN CORPUSCULAR HGB CONC 33.1 g/dl (32.0-36.0); MEAN CORPUSCULAR VOLUME 101.5 fl (83.0-99.0); MONOCYTES ABSOLUTE AUTO 1.6 K/mm3 (0.0-0.8); MONOCYTES PERCENT AUTO 9.6 % (0.0-8.0); NEUTROPHILS ABSOLUTE AUTO 12.7 K/mm3 (1.8-7.7); NEUTROPHILS PERCENT AUTO 77.6 % (41.0-71.0); PLATELET COUNT,PLT 378 K/mm3 (150-400); RED BLOOD CELL COUNT 4.02 M/mm3 (4.10-5.30); WHITE BLOOD CELL COUNT,WBC 16.41 K/mm3 (3.9-11.3)
[2023-04-30 19:54] LABS: A/G RATIO 1.2 (1-2); ANION GAP 17.5 (5-15); BILIRUBIN TOTAL 0.6 mg/dL (0.2-1.0); BUN/CREATININE RATIO 13.1 (14-18); CALCIUM 9.9 mg/dL (8.5-10.1); CREATININE 1.6 mg/dL (0.55-1.02); EST CRCL DRUG DOSING (CG) 22.18 mL/min; POTASSIUM,K 3.5 mEq/L (3.5-5.1); PROTEIN TOTAL,TP 7.3 g/dl (6.4-8.2)
[2023-04-30] MEDS ORDERED: Nitroglycerin 0.4 MG Tab.SL SL PRN (20:17)
[2023-04-30] MEDS ORDERED: Nitroglycerin 2% Oint 1 GM UD Packet ONE (20:59)
[2023-04-30] MEDS ORDERED: Nitroglycerin/D5W 25 MG/250 ML BOTTLE IV SCH (21:45)
[2023-04-30] MEDS ORDERED: Acetaminophen 325 MG Tab PO ONE (21:59)
[2023-05-01] MEDS ORDERED: Heparin Sodium/D5W 25,000 UNITS/500 ML BAG IV SCH (06:45)
[2023-05-01] MEDS ORDERED: Heparin Sodium 5,000 Units/ML Vial ONE (06:56)
[2023-05-01 15:30] VITALS: PULSE 72
[2023-05-01 15:36] VITALS: BP 99/52
== END 2023-05-01 13:15 | disposition other institution (70) ==
LOC: JD.ED 18:43
DX: I21.4 Non-ST elevation (NSTEMI) myocardial infarction (principal); E78.00 Pure hypercholesterolemia, unspecified; I25.2 Old myocardial infarction; Z79.899 Other long term (current) drug therapy; Z79.01 Long term (current) use of anticoagulants
CPT/HCPCS: 36415; 71045; 80053; 83880; 84484; 85025; 85049; 85379; 85730; 93005; 96374; 96375; 99285; A9270; J1644; J2305; 93010

== ENCOUNTER 2023-09-07 13:29 | Emergency (ER) | payer MEDICARE, OTHER ==
[2023-09-07 13:53] VITALS: PULSE 63
[2023-09-07 14:27] LABS: BASOPHILS ABSOLUTE AUTO 0.1 K/mm3 (0.0-0.2); BASOPHILS PERCENT AUTO 0.7 % (0.0-1.0); EOSINOPHILS ABSOLUTE AUTO 0.1 K/mm3 (0.0-0.4); EOSINOPHILS PERCENT AUTO 0.5 % (0.0-6.0); HEMATOCRIT 40.8 % (37.0-47.0); HEMOGLOBIN 13.7 gm/dl (12.0-16.0); IMMATURE GRAN ABSOLUTE AUTO 0.19 K/mm3 (0.00-0.05); IMMATURE GRAN PERCENT AUTO 1.3 % (0.0-0.4); LYMPHOCYTES ABSOLUTE AUTO 1.4 K/mm3 (1.0-4.8); LYMPHOCYTES PERCENT AUTO 9.2 % (24.0-44.0); MEAN CORPUSCULAR HEMOGLOBIN 33.5 pg (28.0-32.0); MEAN CORPUSCULAR HGB CONC 33.6 g/dl (32.0-36.0); MEAN CORPUSCULAR VOLUME 99.8 fl (83.0-99.0); MEAN PLATELET VOLUME 10.2 fl (9.4-12.3); MONOCYTES ABSOLUTE AUTO 1.4 K/mm3 (0.0-0.8); MONOCYTES PERCENT AUTO 9.7 % (0.0-8.0); NEUTROPHILS ABSOLUTE AUTO 11.6 K/mm3 (1.8-7.7); NEUTROPHILS PERCENT AUTO 78.6 % (41.0-71.0); PLATELET COUNT,PLT 331 K/mm3 (150-400); RED BLOOD CELL COUNT 4.09 M/mm3 (4.10-5.30); WHITE BLOOD CELL COUNT,WBC 14.78 K/mm3 (3.9-11.3)
[2023-09-07 14:56] LABS: A/G RATIO 1.1 (1-2); ALBUMIN 3.6 g/dl (3.4-5.0); ANION GAP 14.4 (5-15); BILIRUBIN TOTAL 0.7 mg/dL (0.2-1.0); BUN/CREATININE RATIO 17.1 (14-18); CALCIUM 9.6 mg/dL (8.5-10.1); CREATININE 1.4 mg/dL (0.55-1.02); EST CRCL DRUG DOSING (CG) 25.35 mL/min; POTASSIUM,K 3.4 mEq/L (3.5-5.1)
[2023-09-07] MEDS: Albuterol/Ipratropium 3.0-0.5 MG/3 ML Neb Soln NEB ONE (15:49)
[2023-09-07] MEDS: Sodium Chloride 0.9% 250 ML IV STA (17:43)
[2023-09-07 17:54] LABS: INR 1.05; PROTHROMBIN TIME 11.2 SECONDS (9.7-12.0)
[2023-09-07 18:03] LABS: PTT,PARTIAL THROMBOPLSTIN TIME 24.2 SECONDS (21.7-31.4)
[2023-09-07] MEDS: Heparin Sodium/D5W 25,000 UNITS/500 ML BAG IV SCH (18:08)
[2023-09-07 19:52] VITALS: BP 181/80
== END 2023-09-07 19:00 ==
LOC: JD.ED 13:29
DX: I21.4 Non-ST elevation (NSTEMI) myocardial infarction (principal); I48.91 Unspecified atrial fibrillation; E78.00 Pure hypercholesterolemia, unspecified; I10 Essential (primary) hypertension; I25.2 Old myocardial infarction; Z79.01 Long term (current) use of anticoagulants; Z79.899 Other long term (current) drug therapy; Z86.19 Personal history of other infectious and parasitic diseases
CPT/HCPCS: 36415; 71046; 80053; 83880; 84484; 85025; 85379; 85610; 85730; 93005; 94640; 96365; 99285; J1644; J7030; J7620-GY